=== PATIENT | male | born 1970 | race Caucasian/White ===

== ENCOUNTER 2024-12-24 11:35 | Inpatient (IN) | payer OTHER ==
[~2024-12-24] VITALS: Ht 181.6 cm; Wt 83.0 kg
[2024-12-24 12:13] LABS: EOSINOPHILS % 3.9 % (0.0-5.0); HEMATOCRIT. 37.7 % (42.0-52.0); HEMOGLOBIN. 12.7 g/dL (14.0-18.0); LYMPHOCYTES % 19.4 % (20.0-50.0); MEAN CORPUSCULAR HEMOGLOBIN 30.7 pg (28.0-32.0); MEAN CORPUSCULAR HGB CONC 33.7 g/dL (31.0-37.0); MEAN CORPUSCULAR VOLUME 91.3 fL (80.0-94.0); MEAN PLATELET VOLUME 6.6 fl (7.4-10.4); MONOCYTES % 7.5 % (2.0-8.0); NEUTROPHILS % 68.2 % (40.0-76.0); PLATELET 452 x1000/uL (130-400); RED BLOOD CELL COUNT 4.13 mill/uL (4.7-6.1); RED CELL DISTRIBUTION WIDTH 13.2 % (11.6-14.6); WHITE BLOOD COUNT 6.5 x1000/uL (4.5-11.0)
[2024-12-24 12:21] LABS: CHLORIDE 103 mEq/L (98-107); POTASSIUM 3.8 mEq/L (3.5-5.1); SODIUM 141 mEq/L (136-145)
[2024-12-24 12:22] LABS: CALCIUM 9.3 mg/dL (8.7-10.4); CARBON DIOXIDE 30 mEq/L (21-32)
[2024-12-24 12:27] LABS: CREATININE 0.9 mg/dL (0.6-1.3); GLUCOSE 153 mg/dL (70-105); UREA NITROGEN BLOOD 16 mg/dL (9-23)
[2024-12-24 13:27] LABS: CLARITY URINE CLEAR (CLEAR); COLOR URINE YELLOW (YELLOW); GLUCOSE URINE NEGATIVE (NEGATIVE); KETONES URINE NEGATIVE (NEGATIVE); LEUKOCYTE ESTERASE URINE NEGATIVE (NEGATIVE); NITRITE URINE NEGATIVE (NEGATIVE); OCCULT BLOOD URINE NEGATIVE (NEGATIVE); PH URINE 6.5 (4.5-8.0); PROTEIN URINE NEGATIVE (NEGATIVE); SPECIFIC GRAVITY URINE 1.016 (1.005-1.030); UROBILINOGEN URINE 0.2 E.U./dL (0.2-1.0)
[2024-12-24] MEDS ORDERED: LIDOCAINE HCL/EPINEPHRINE 1%-EPI 1:100,000 20ML VIAL INFIL ONE (13:45)
[2024-12-24] MEDS ORDERED: CEFTRIAXONE 1GM/50ML 50 ML IV ONE (13:45)
[2024-12-24] MEDS: VANCOMYCIN 1G PREMIX 200 ML IV ONE (14:38)
[2024-12-24] MEDS: KETOROLAC 30MG/ML VIAL IV STA (14:38)
[2024-12-24] MEDS: SODIUM CHLORIDE 0.9% (SEPSIS BOLUS) IV ONE (15:42)
[2024-12-24] MEDS ORDERED: ENOXAPARIN 80MG/0.8ML SYR SUBCUT ONE (16:15)
[2024-12-24] MEDS ORDERED: IPRATROPIUM/ALBUTEROL 0.5-3(2.5)MG/3ML NEB HHN PRN (16:15)
[2024-12-24] MEDS ORDERED: CLONIDINE 0.1MG TABLET PO PRN (16:15)
[2024-12-24] MEDS ORDERED: ONDANSETRON HCL 4MG/2ML INJ IV PRN (16:15)
[2024-12-24] MEDS ORDERED: NALOXONE HCL 0.4MG/ML VIAL IV PRN (16:30)
[2024-12-24] MEDS ORDERED: VANCOMYCIN 1.5GM/250ML 250 ML IV SCH (18:00)
[2024-12-24 18:25] VITALS: BP 122/81; PULSE 77; RESP 20; TEMP 36.9; O2SAT 98
[2024-12-24 20:00] VITALS: BP 122/81; PULSE 72; RESP 20; TEMP 36.7; O2SAT 100
[2024-12-24] MEDS: MORPHINE SULFATE 2 MG/ML INJ (NOT FOR IM USE) IV PRN (22:50)
[2024-12-24] MEDS: VANCOMYCIN 750MG PREMIX 150 ML IV SCH (23:11)
[2024-12-24 23:45] VITALS: BP 122/81; PULSE 72; RESP 20; TEMP 36.7
[2024-12-25] VITALS: BP 114/76; PULSE 72; RESP 18; TEMP 36.5; O2SAT 100
[2024-12-25] MEDS: ACETAMINOPHEN 325MG TABLET PO PRN (01:45)
[2024-12-25 04:00] VITALS: BP 119/81; PULSE 63; RESP 17; TEMP 36.4; O2SAT 99
[2024-12-25 06:59] LABS: BASOPHILS % 0.9 % (0.0-2.0); EOSINOPHILS % 4.9 % (0.0-5.0); HEMATOCRIT. 35.4 % (42.0-52.0); HEMOGLOBIN. 12.2 g/dL (14.0-18.0); LYMPHOCYTES % 21.5 % (20.0-50.0); MEAN CORPUSCULAR HEMOGLOBIN 31.4 pg (28.0-32.0); MEAN CORPUSCULAR HGB CONC 34.3 g/dL (31.0-37.0); MEAN CORPUSCULAR VOLUME 91.6 fL (80.0-94.0); MEAN PLATELET VOLUME 6.7 fl (7.4-10.4); MONOCYTES % 8.3 % (2.0-8.0); NEUTROPHILS % 64.4 % (40.0-76.0); PLATELET 383 x1000/uL (130-400); RED BLOOD CELL COUNT 3.87 mill/uL (4.7-6.1); RED CELL DISTRIBUTION WIDTH 13.1 % (11.6-14.6); WHITE BLOOD COUNT 5.3 x1000/uL (4.5-11.0)
[2024-12-25 08:00] VITALS: BP 118/79; PULSE 60; RESP 18; TEMP 36.6; O2SAT 99
[2024-12-25 09:19] LABS: CARBON DIOXIDE 29 mEq/L (21-32); CHLORIDE 104 mEq/L (98-107); POTASSIUM 4.1 mEq/L (3.5-5.1); SODIUM 141 mEq/L (136-145)
[2024-12-25 09:20] LABS: CALCIUM 8.6 mg/dL (8.7-10.4)
[2024-12-25 09:24] LABS: CREATININE 0.7 mg/dL (0.6-1.3); GLUCOSE 93 mg/dL (70-105)
[2024-12-25 09:25] LABS: UREA NITROGEN BLOOD 12 mg/dL (9-23)
[2024-12-25 11:55] VITALS: BP 112/78; PULSE 72; RESP 18; TEMP 36.8; O2SAT 98
[2024-12-25 16:00] VITALS: BP 121/83; PULSE 75; RESP 20; TEMP 36.6; O2SAT 100
[2024-12-25] MEDS: ENOXAPARIN 40MG/0.4ML SYR SUBCUT SCH (16:13)
[2024-12-25] MEDS: VANCOMYCIN 750MG PREMIX 150 ML IV SCH (16:51)
[2024-12-25] MEDS ORDERED: DEXTROSE 50% WATER 50ML SYRINGE IV PRN (17:45)
[2024-12-25 20:00] VITALS: BP 114/77; PULSE 74; RESP 16; TEMP 36.7; O2SAT 98
[2024-12-25 20:09] LABS: IRON 70 ug/dL (65-175)
[2024-12-25 20:12] LABS: TOTAL IRON BINDING CAPACITY 279 ug/dl (250-425)
[2024-12-25] MEDS: INSULIN LISPRO 100 UNITS/ML SUBCUT SCH (21:00)
[2024-12-25] MEDS: BLOOD SUGAR DIAGNOSTIC STRIP TEST SCH (21:50)
[2024-12-26 04:00] VITALS: BP 127/1; PULSE 71; RESP 18; TEMP 37; O2SAT 96
[2024-12-26 05:22] LABS: BASOPHILS % 0.9 % (0.0-2.0); EOSINOPHILS % 4.2 % (0.0-5.0); HEMATOCRIT. 39.1 % (42.0-52.0); HEMOGLOBIN. 13.1 g/dL (14.0-18.0); LYMPHOCYTES % 22.2 % (20.0-50.0); MEAN CORPUSCULAR HEMOGLOBIN 31.2 pg (28.0-32.0); MEAN CORPUSCULAR HGB CONC 33.6 g/dL (31.0-37.0); MEAN CORPUSCULAR VOLUME 92.7 fL (80.0-94.0); MEAN PLATELET VOLUME 6.7 fl (7.4-10.4); MONOCYTES % 8.2 % (2.0-8.0); NEUTROPHILS % 64.5 % (40.0-76.0); PLATELET 444 x1000/uL (130-400); RED BLOOD CELL COUNT 4.21 mill/uL (4.7-6.1); RED CELL DISTRIBUTION WIDTH 13.3 % (11.6-14.6)
[2024-12-26 05:32] LABS: CHLORIDE 102 mEq/L (98-107); POTASSIUM 4.2 mEq/L (3.5-5.1); SODIUM 138 mEq/L (136-145)
[2024-12-26 05:33] LABS: CARBON DIOXIDE 29 mEq/L (21-32)
[2024-12-26 05:38] LABS: CREATININE 0.8 mg/dL (0.6-1.3); GLUCOSE 113 mg/dL (70-105)
[2024-12-26 05:39] LABS: UREA NITROGEN BLOOD 15 mg/dL (9-23); VANCOMYCIN TROUGH 11.9 ug/mL (5.0-10.0)
[2024-12-26 05:41] LABS: PHOSPHORUS 3.8 mg/dL (2.5-4.9)
[2024-12-26 08:00] VITALS: BP 114/73; PULSE 68; RESP 16; TEMP 36.5; O2SAT 98
[2024-12-26 12:00] VITALS: BP 121/82; PULSE 62; RESP 12; TEMP 36.4; O2SAT 100
[2024-12-26 16:00] VITALS: BP 108/71; PULSE 70; RESP 14; TEMP 36.7; O2SAT 99
[2024-12-26] MEDS ORDERED: CEFEPIME 1GM IN DEXT 5% 50ML IV SCH (16:45)
[2024-12-26] MEDS: CEFEPIME 2GM/50ML DUPLEX 50 ML IV SCH (18:16)
[2024-12-26 20:00] VITALS: BP 100/50; PULSE 79; RESP 19; TEMP 36.6; O2SAT 99
[2024-12-26] MEDS: VANCOMYCIN 1G PREMIX 200 ML IV SCH (21:57)
[2024-12-27 04:00] VITALS: BP 93/60; PULSE 70; RESP 17; TEMP 36.7; O2SAT 97
[2024-12-27 06:49] LABS: BASOPHILS % 0.6 % (0.0-2.0); EOSINOPHILS % 3.7 % (0.0-5.0); HEMATOCRIT. 43.1 % (42.0-52.0); HEMOGLOBIN. 14.6 g/dL (14.0-18.0); LYMPHOCYTES % 19.8 % (20.0-50.0); MEAN CORPUSCULAR HGB CONC 33.8 g/dL (31.0-37.0); MEAN CORPUSCULAR VOLUME 91.8 fL (80.0-94.0); MEAN PLATELET VOLUME 6.8 fl (7.4-10.4); MONOCYTES % 8.8 % (2.0-8.0); NEUTROPHILS % 67.1 % (40.0-76.0); PLATELET 460 x1000/uL (130-400); RED CELL DISTRIBUTION WIDTH 13.2 % (11.6-14.6); WHITE BLOOD COUNT 6.4 x1000/uL (4.5-11.0)
[2024-12-27 07:09] LABS: CHLORIDE 102 mEq/L (98-107); POTASSIUM 4.1 mEq/L (3.5-5.1); SODIUM 138 mEq/L (136-145)
[2024-12-27 07:10] LABS: CALCIUM 9.2 mg/dL (8.7-10.4); CARBON DIOXIDE 27 mEq/L (21-32)
[2024-12-27 07:15] LABS: CREATININE 0.9 mg/dL (0.6-1.3); GLUCOSE 89 mg/dL (70-105); UREA NITROGEN BLOOD 18 mg/dL (9-23)
[2024-12-27 07:17] LABS: PHOSPHORUS 4.3 mg/dL (2.5-4.9)
[2024-12-27 08:00] VITALS: BP 99/65; PULSE 72; RESP 20; TEMP 36.9; O2SAT 100
[2024-12-27] MEDS ORDERED: IOHEXOL-350 100 ML BOTTLE ONE (11:18)
[2024-12-27 12:00] VITALS: BP 95/62; PULSE 79; RESP 18; TEMP 36.9; O2SAT 100
[2024-12-27 16:00] VITALS: BP 95/64; PULSE 73; RESP 20; TEMP 36.7; O2SAT 100
[2024-12-27] MEDS: LIDOCAINE HCL 4% (40MG/ML) SOLN 50ML TOP NR (16:06)
[2024-12-27] MEDS: MORPHINE SULFATE 4 MG/ML INJ (FOR IV/IM USE) IV PRN (16:06)
[2024-12-27] MEDS: SODIUM CHLORIDE 0.9% 1,000 ML IV SCH (16:13)
[2024-12-27 20:00] VITALS: BP 107/77; PULSE 67; RESP 19; TEMP 36.7; O2SAT 97
[2024-12-28] VITALS: BP 109/70; PULSE 84; RESP 20; TEMP 36.5; O2SAT 98
[2024-12-28 04:00] VITALS: BP 116/74; RESP 20; TEMP 36.7; O2SAT 98
[2024-12-28 08:00] VITALS: BP 104/70; PULSE 78; RESP 18; TEMP 36.6; O2SAT 99
[2024-12-28] MEDS ORDERED: ACET-2708 MT (11:15)
[2024-12-28] MEDS ORDERED: CEFD300C3 MT (11:15)
[2024-12-28] MEDS ORDERED: SULF1TAB48 MT (11:15)
[2024-12-28 11:22] VITALS: BP 104/70; PULSE 78; TEMP 97.8; O2SAT 99
[2024-12-28 12:00] VITALS: BP 103/67; PULSE 75; RESP 18; TEMP 36.7; O2SAT 99
[2024-12-31 04:00] VITALS: BP 106/71; PULSE 71; RESP 19; TEMP 36.7; O2SAT 98
== END 2024-12-28 13:30 | disposition home or self-care (01) | DRG 383 ==
LOC: ER 11:35 → EDBD 11:35 → 8EST 16:04 → EDBEDREQ 16:05
PROVIDERS: ADMIT Hospitalist; ATTEND Hospitalist
PROC: 0H9LXZZ Drainage of Left Lower Leg Skin, External Approach (ICD-10-PCS; principal; 2024-12-24)
PROC: 0JBP0ZZ Excision of Left Lower Leg Subcutaneous Tissue and Fascia, Open Approach (ICD-10-PCS; 2024-12-27)
DX: L03.116 Cellulitis of left lower limb (principal); I73.9 Peripheral vascular disease, unspecified; D64.9 Anemia, unspecified; L02.416 Cutaneous abscess of left lower limb; R73.9 Hyperglycemia, unspecified; L03.115 Cellulitis of right lower limb; R73.03 Prediabetes; R26.9 Unspecified abnormalities of gait and mobility; I10 Essential (primary) hypertension
CPT/HCPCS: 10061; 36415; 73590; 73610; 75635; 80048; 80202; 81003; 82728; 82962; 83036; 83540; 83550; 83605; 83735; 84100; 84145; 85025; 87070; 87077; 87186; 93005; 93923; 93970; 97166; 99285; J0692; J0696; J1650; J1815; J1885; J2004; J2270; J3370; J7030; Q9967